=== PATIENT | male | born 1995 | race African-American/Black ===

== ENCOUNTER 2017-03-27 05:02 | Emergency (ER) | payer SELFPAY ==
[2017-03-27 05:11] VITALS: BP 158/86
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
[2017-03-27] MEDS ORDERED: IBUPROFEN 600 MG TABLET PO ONE (05:40)
[2017-03-27] MEDS ORDERED: DIPH/PERTUSS(ACELL)/TETANUS VAC/PF 0.5 ML SYR (>=10YO) IM ONE (05:40)
== END 2017-03-27 06:11 | disposition home or self-care (01) ==
LOC: ER 05:02
DX: S00.412A Abrasion of left ear, initial encounter (principal); S20.412A Abrasion of left back wall of thorax, initial encounter; W20.8XXA Other cause of strike by thrown, projected or falling object, initial encounter; Z23 Encounter for immunization
CPT/HCPCS: 90715; 99282